=== PATIENT | male | born 1960 | race Caucasian/White ===

== ENCOUNTER 2024-01-06 17:38 | Emergency (ER) | payer OTHER ==
[~2024-01-06] VITALS: Ht 182.9 cm; Wt 67.1 kg
[2024-01-06] MEDS: ONDANSETRON HCL INJ 2MG/ML 2ML 2 MG/ML VIAL IV STA (18:10)
[2024-01-06] MEDS: FAMOTIDINE 20 MG/2 ML VIAL IV ONE (18:10)
[2024-01-06] MEDS: SODIUM CHLORIDE 0.9% 1000ML 1,000 ML IV ONE (18:11)
[2024-01-06] MEDS: Morphine 4mg INJECTION 4 MG/ML INJ IV ONE ×2 (18:20→21:20)
[2024-01-06] MEDS ORDERED: IOPAMIDOL 370 MG/ML 100 ML INFUS..BTL INJ ONE (18:46)
[2024-01-06 18:52] LABS: BASOPHILS # (AUTO) 0.1 (0.0-0.1); BASOPHILS % 0.5 % (0.0-1.0); EOSINOPHILS # (AUTO) 0.3 (0.0-0.4); EOSINOPHILS % 3.2 % (0.0-6.0); HEMATOCRIT 48.2 % (38.2-49.6); LYMPHOCYTES # (AUTO) 1.3 (1.0-3.2); LYMPHOCYTES % 13.6 % (18.0-39.1); MEAN CORPUSCULAR HEMOGLOBIN 31.4 pg (28-32); MEAN CORPUSCULAR HGB CONC 33.2 g/dL (31-35); MEAN CORPUSCULAR VOLUME 94.7 fL (81-99); MONOCYTES # (AUTO) 0.5 (0.2-0.8); MONOCYTES % 4.9 % (4.4-11.3); NEUTROPHILS # (AUTO) 7.5 (2.1-6.9); NEUTROPHILS % 77.6 % (38.7-80.0); PLATELET COUNT 287 x10e3/uL (140-360); RED BLOOD COUNT 5.09 x10e6/uL (4.3-5.7); WHITE BLOOD COUNT 9.72 x10e3/uL (4.8-10.8)
[2024-01-06] MEDS: HYDRALAZINE HCL 20 MG/ML VIAL IV ONE ×2 (19:40→23:38)
[2024-01-06] MEDS ORDERED: CLONIDINE HCL 0.1 MG TAB PO ONE (22:00)
[2024-01-06] MEDS ORDERED: LISINOPRIL 10 MG TAB PO ONE (22:00)
[2024-01-06 23:32] VITALS: TEMP 98.6
[2024-01-06 23:38] VITALS: BP 192/87
[2024-01-06 23:45] VITALS: PULSE 59; RESP 16; O2SAT 95
== END 2024-01-06 23:50 | disposition other institution (70) ==
LOC: FSED 17:44
DX: R11.2 Nausea with vomiting, unspecified (principal); K85.90 Acute pancreatitis without necrosis or infection, unspecified; K86.2 Cyst of pancreas; J90 Pleural effusion, not elsewhere classified; I71.43 Infrarenal abdominal aortic aneurysm, without rupture; I70.0 Atherosclerosis of aorta; I74.5 Embolism and thrombosis of iliac artery; R10.13 Epigastric pain; I10 Essential (primary) hypertension
CPT/HCPCS: 36415; 74177; 80048; 80076; 81003; 82553; 83690; 84484; 85025; 93005; 96374; 96375; 99284; J0360; J2270; J2405; J7030; Q9967

== ENCOUNTER 2024-01-16 21:05 | Emergency (ER) | payer OTHER ==
[~2024-01-16] VITALS: Ht 182.9 cm; Wt 65.3 kg
[2024-01-16 21:13] VITALS: TEMP 98.5
[2024-01-16] MEDS ORDERED: PROMETHAZINE 25MG/ NS 50ML (IV) IV ONE (21:30)
[2024-01-16] MEDS ORDERED: PROMETHAZINE HCL (IM) 25 MG/ML VIAL IM ONE (21:56)
[2024-01-16] MEDS: Morphine 4mg INJECTION 4 MG/ML INJ IV STA (22:06)
[2024-01-16] MEDS: FAMOTIDINE 20 MG/2 ML VIAL IV ONE (22:06)
[2024-01-16] MEDS: LACTATED RINGER'S 500 ML INJ ONE (22:07)
[2024-01-16] MEDS: PROMETHAZINE 25MG/ NS 50ML (IV) IV ONE (22:20)
[2024-01-16] MEDS: NITROGLYCERIN 2% OINT 1 GM PKT TOP ONE (23:26)
[2024-01-16] MEDS: HYDRALAZINE HCL 20 MG/ML VIAL IV STA (23:26)
[2024-01-16 23:43] VITALS: PULSE 65; RESP 18
[2024-01-17 00:17] VITALS: BP 148/68; PULSE 65; RESP 18; TEMP 98.4; O2SAT 95
== END 2024-01-17 00:35 | disposition other institution (70) ==
LOC: FSED 21:09
DX: R11.2 Nausea with vomiting, unspecified (principal); E86.0 Dehydration; K85.90 Acute pancreatitis without necrosis or infection, unspecified; K86.2 Cyst of pancreas; R10.30 Lower abdominal pain, unspecified; I10 Essential (primary) hypertension
CPT/HCPCS: 80048; 80076; 81003; 82553; 84484; 85025; 96374; 96375; 99284; J0360; J2270; J2550; J7121

== ENCOUNTER 2024-11-13 08:57 | Emergency (ER) | payer OTHER ==
[~2024-11-13] VITALS: Ht 182.9 cm; Wt 74.1 kg
[~2024-11-13 08:57] MED LIST: ALBUTEROL1.25 MG/3 NEB; ATORVASTATIN CA20 MG PO; COREG12.5 MG PO; DOXYCYCLINE HY100 MG PO; EASY AIR COMPR1 EACH INH; HYDRALAZINE HCL10 MG PO; NIFEDIPINE ER30 M1 PO; PLAVIX75 MG PO; PREDNISONE50 MG PO; VENTOLIN HFA18 GM INH
[2024-11-13 09:10] VITALS: TEMP 97.8
[2024-11-13] MEDS: SODIUM CHLORIDE 0.9% 1000ML 1,000 ML IV STA (09:39)
[2024-11-13] MEDS: METHYLPREDNISOLONE SOD SUCC 125 MG/2ML VIAL IV ONE (09:39)
[2024-11-13] MEDS: ALBUTEROL/IPRATROPIUM 3 ML NEB NEB ONE ×2 (09:40→10:47)
[2024-11-13] MEDS ORDERED: ULTRAM 50MG50 MG PO (10:09)
[2024-11-13] MEDS ORDERED: NEURONTIN300 MG PO (10:09)
[2024-11-13] MEDS ORDERED: CREON DR 12,001 EACH PO (10:09)
[2024-11-13] MEDS ORDERED: ASPIRIN EC81 MG PO (10:09)
[2024-11-13] MEDS ORDERED: IPRAT-ALBUT 0.5-3 ML NEB (10:39)
[2024-11-13] MEDS ORDERED: LEVOFLOXACIN250 MG PO (10:39)
[2024-11-13] MEDS ORDERED: PREDNISONE20 MG PO (10:39)
[2024-11-13 10:47] VITALS: PULSE 50; RESP 13
[2024-11-13] MEDS: LEVOFLOXACIN 500MG/D5W 100ML 100 ML IV ONE (10:47)
[2024-11-13 11:11] VITALS: PULSE 52; RESP 21; O2SAT 96
== END 2024-11-13 11:42 | disposition home or self-care (01) ==
LOC: FSED 09:04
DX: R06.02 Shortness of breath (principal); R09.02 Hypoxemia; J44.1 Chronic obstructive pulmonary disease with (acute) exacerbation; J43.9 Emphysema, unspecified; R00.1 Bradycardia, unspecified; J40 Bronchitis, not specified as acute or chronic
CPT/HCPCS: 71250; 80053; 83880; 84484; 85025; 93005; 94760; 96374; 99284; J1956; J2919; J7030